=== PATIENT | male | born 1950 | race Caucasian/White ===

== ENCOUNTER 2019-10-22 08:38 | Emergency (ER) | payer MEDICARE, BC ==
[2019-10-22 08:52] VITALS: BP 155/87; PULSE 69
[2019-10-22] MEDS ORDERED: Alum Hydrox/Mag Hydrox/Simeth 30 ML, Lidocaine 2% 15 ML PO ONE ×2 (09:00)
[2019-10-22] MEDS ORDERED: Sodium Chloride 0.9% 10 ML Syringe FLUSH PRN (09:01)
[2019-10-22] MEDS ORDERED: Metoclopramide 10 MG/2 ML SDV IVPUSH ONE (09:05)
--- NOTE | 2019-10-22 09:05 | EDM.PDOC ---
ED HPI GENERAL MEDICAL PROBLEM - General Chief Complaint: Chest Pain Stated Complaint: CHEST PAIN Time Seen by Provider: 10/22/19 08:50 Source of Information: Reports: Patient History Limitations: Reports: No Limitations - History of Present Illness INITIAL COMMENTS - FREE TEXT/NARRATIVE: 69-year-old male presents to the ED complaining of diffuse left precordial discomfort for the last couple of days. He has intermittent nausea and vomiting usually in the evenings but he states this is been going on for a lengthy period of time. It sounds like he feels better first thing in the morning and by the end of the day he feels that his stomach is over full and has to vomit to get relief suggesting a gastroparesis. Of note the patient has no history of diabetes. He states he takes some kind of medication daily for heartburn relief but does not use Tums or Rolaids. Denies any true odynophagia. 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 Does not appreciate any chest pain with exertion. Used to smoke but quit many years ago. Does have some high blood pressure issues not sure about his cholesterol. His cough or sputum production. Denies fever chills. Onset: Gradual Onset Date: 10/20/19 (Planes of persistent diffuse left precordial chest discomfort for the last couple of days without radiation through to his back.) Duration: Day(s):, Constant, Other (Exertion does not make it worse.) Location: Reports: Chest (Left precordial chest.) Quality: Reports: Ache, Pressure Severity: Mild Improves with: Reports: None Worsens with: Reports: None Context: Denies: Activity, Exercise, Lifting, Sick Contact, Trauma, Other Associated Symptoms: Reports: Cough, Nausea/Vomiting (Nausea and vomiting for many years he occurs in the evening. He feels better first thing in the morning before he eats.). Denies: No Other Symptoms, Confusion (Mild cough), Chest Pain, cough w sputum, Diaphoresis, Fever/Chills, Headaches, Loss of Appetite, Malaise, Rash, Seizure, Shortness of Breath, Syncope, Weakness Left Chest Pain Score (Numeric/FACES): 4 - Related Data Allergies Allergy/AdvReac Type Severity Reaction Status Date / Time No Known Allergies Allergy Verified 10/22/19 08:52 Home Meds: Home Meds Enalapril/Hydrochlorothiazide [Enalapril-HCTZ 5-12.5 MG] 1 tab PO DAILY [History] Dicyclomine [Bentyl] 20 mg PO Q6H PRN #12 tablet 10/22/19 [Rx] Gabapentin [Neurontin] 300 mg PO DAILY 10/22/19 [History] Meloxicam 7.5 mg PO BID 10/22/19 [History] Omeprazole 20 mg PO DAILY 10/22/19 [History] Tetrahydrz/Dext 70/Peg 400/Pvp [Eye Drops] 10/22/19 [History] Tolterodine Tartrate [Detrol LA] 4 mg PO DAILY 10/22/19 [History] Vit C/E/Zn/Coppr/Lutein/Zeaxan [Preservision Areds 2 Softgel] 1 tab PO DAILY 06/02 [History] atorvaSTATin [Lipitor] 10 mg PO DAILY 10/22/19 [History] Past Medical History HEENT History: Reports: Cataract, Impaired Vision Cardiovascular History: Reports: Hypertension Gastrointestinal History: Reports: GERD Musculoskeletal History: Reports: Arthritis, Back Pain, Chronic, Neck Pain, Chronic, Other (See Below) Other Musculoskeletal History: shoulder and hip spurs, recieves injection for pain Psychiatric History: Reports: Anxiety - Past Surgical History HEENT Surgical History: Reports: Tonsillectomy Social & Family History - Family History Family Medical History: Noncontributory - Tobacco Use Smoking Status *Q: Never Smoker Second Hand Smoke Exposure: No - Caffeine Use Caffeine Use: Reports: Coffee - Recreational Drug Use Recreational Drug Use: No - Living Situation & Occupation Living situation: Reports: Single Occupation: Employed [employer] [facility] - Review of Systems Review Of Systems: See Below Constitutional: Reports: Decreased Appetite. Denies: Fever, Chills, Malaise, Weakness, Fatigue, Weight Loss HEENT: Reports: No Symptoms Respiratory: Reports: No Symptoms Cardiovascular: Reports: Chest Pain, Blood Pressure Problem. Denies: Dyspnea on Exertion, Edema (Left precordial chest discomfort for the last couple days but has had it off and on before as well.), Lightheadedness, Orthopnea, Palpitations Endocrine: Reports: No Symptoms GI/Abdominal: Reports: Abdominal Pain (Epigastric abdominal discomfort), Nausea , Vomiting (Frequent nausea and vomiting usually in the evenings after he eats his largest meal. This suggests a history of gastroparesis.) : Reports: Frequency Musculoskeletal: Reports: Back Pain, Joint Pain (Knees hips and back at times) Skin: Reports: Other (Patient comments that intermittently getting in and out of the freezer he develops blanching of his fingers particularly third second and first fingers of his left hand particularly. He also appreciates this intermittently when going out in the cold weather. This suggests a history of Raynaud's phenomenon. Stated can last up to 2 hours.) Neurological: Reports: No Symptoms Psychiatric: Reports: No Symptoms Hematologic/Lymphatic: Reports: No Symptoms Immunologic: Reports: No Symptoms ED EXAM, GENERAL - Physical Exam Exam: See Below Exam Limited By: No Limitations General Appearance: Alert, WD/WN, No Apparent Distress, Other (Temperature is 36.6 pulse is 69 is sinus respiratory is 20 BP 155/87 O2 sats are 95% on room air.) Eye Exam: Bilateral Eye: Normal Inspection, PERRL Throat/Mouth: Normal Inspection, Normal Lips, Normal Oropharynx Head: Atraumatic, Normocephalic Neck: Normal Inspection, Supple, Non-Tender, Full Range of Motion. No: Carotid Bruit, Lymphadenopathy (L), Lymphadenopathy (R) Respiratory/Chest: No Respiratory Distress, Lungs Clear, Normal Breath Sounds, No Accessory Muscle Use Cardiovascular: Normal Peripheral Pulses, Regular Rate, Rhythm, No Edema, No Gallop, No Murmur, No Rub Peripheral Pulses: 2+: Posterior Tibial (L), Posterior Tibial (R), Dorsalis Pedis (L), Dorsalis Pedis (R) GI/Abdominal: Normal Bowel Sounds, Soft, Non-Tender, No Organomegaly, No Distention, No Abnormal Bruit, No Mass, Pelvis Stable, Other (Comments he did have some diarrhea for a couple of days 3 or 4 times per day. Suggest possible gastroenteritis.) Back Exam: Normal Inspection, Full Range of Motion. No: CVA Tenderness (L), CVA Tenderness (R) Extremities: Normal Inspection, Normal Range of Motion, Non-Tender. No: Pedal Edema Neurological: Alert, Oriented, CN II-XII Intact, Normal Cognition, Normal Gait Psychiatric: Normal Affect, Normal Mood Skin Exam: Warm, Dry, Intact, Normal Color, No Rash EKG INTERPRETATION EKG Date: 10/22/19 Time: 08:45 Rhythm: NSR Rate (Beats/Min): 70 [place]: LAD-Left [place] Deviation (Left axis deviation of -20 degrees) P-Wave: Present QRS: Other (Initial early R wave transition with poor R wave progression. Decreased voltage in the precordial leads.) ST-T: Other (T wave flattening lead III nonspecific finding) QT: Normal EKG Interpretation Comments: Borderline ECG . No signs of ischemia Course - Vital Signs Last Recorded V/S: Last Vital Signs Temp 36.6 C 10/22/19 08:45 Pulse 69 10/22/19 08:45 Resp 20 10/22/19 08:45 BP 155/87 H 10/22/19 08:45 Pulse Ox 95 10/22/19 08:45 - Orders/Labs/Meds Orders: Active Orders 24 hr Category Date Time Status Peripheral IV Care [RC] . DIRECTED Care 10/22/19 09:03 Active Dicyclomine [Bentyl] Med 10/22/19 10:57 Once 20 mg PO ONETIME ONE Sodium Chloride 0.9% [Saline Flush] Med 10/22/19 09:01 Active 10 ml FLUSH ASDIRECTED PRN Peripheral IV Insertion Adult [OM.PC] Stat Oth 10/22/19 09:03 Ordered Medication Orders Sodium Chloride (Saline Flush) 10 ml FLUSH ASDIRECTED PRN PRN Reason: Keep Vein Open Last Admin: 10/22/19 09:22 Dose: 10 ml Labs: Laboratory Tests 10/22/19 10/22/19 10/22/19 Range/Units 08:54 08:54 08:54 WBC 7.98 (4.23-9.07) K/mm3 RBC 5.67 (4.63-6.08) M/mm3 Hgb 17.6 H (13.7-17.5) gm/dl Hct 52.2 H (40.1-51.0) % MCV 92.1 (79.0-92.2) fl MCH 31.0 (25.7-32.2) pg MCHC 33.7 (32.2-35.5) g/dl RDW Std Deviation 40.9 (35.1-43.9) fL Plt Count 210 (163-337) K/mm3 MPV 12.1 (9.4-12.3) fl Neut % (Auto) 66.5 (34.0-67.9) % Lymph % (Auto) 21.4 L (21.8-53.1) % [place] % (Auto) 10.3 (5.3-12.2) % Eos % (Auto) 0.8 (0.8-7.0) Baso % (Auto) 0.5 (0.1-1.2) % Neut # (Auto) 5.31 (1.78-5.38) K/mm3 Lymph # (Auto) 1.71 (1.32-3.57) K/mm3 [place] # (Auto) 0.82 (0.30-0.82) K/mm3 Eos # (Auto) 0.06 (0.04-0.54) K/mm3 Baso # (Auto) 0.04 (0.01-0.08) K/mm3 PT 10.5 (9.7-12.0) SECONDS INR 0.96 APTT 27 (22-31) SECONDS D-Dimer, Quantitative (0.19-0.50) mg/L Sodium 139 (136-145) mEq/L Potassium 4.0 (3.5-5.1) mEq/L Chloride 98 (98-107) mEq/L Carbon Dioxide 31 (21-32) mEq/L Anion Gap 14.0 (5-15) BUN 20 H (7-18) mg/dL Creatinine 1.1 (0.7-1.3) mg/dL Est Cr Clr Drug Dosing 62.18 mL/min Estimated GFR (MDRD) > 60 (>60) mL/min BUN/Creatinine Ratio 18.2 H (14-18) Glucose 121 H (80-115) mg/dL Calcium 9.2 (8.5-10.1) mg/dL Magnesium 2.1 (1.8-2.4) mg/dl Total Bilirubin 0.9 (0.2-1.0) mg/dL AST 26 (15-37) U/L ALT 51 (16-63) U/L Alkaline Phosphatase 102 (46-116) U/L CK-MB (CK-2) 1.1 (0-3.6) ng/ml Troponin I < 0.017 (0.00-0.056) ng/mL C-Reactive Protein 0.3 (<1.0) mg/dL NT-Pro-B Natriuret Pep (0-125) pg/mL Total Protein 8.5 H (6.4-8.2) g/dl Albumin 4.4 (3.4-5.0) g/dl Globulin 4.1 gm/dL Albumin/Globulin Ratio 1.1 (1-2) 10/22/19 10/22/19 Range/Units 08:54 08:54 WBC (4.23-9.07) K/mm3 RBC (4.63-6.08) M/mm3 Hgb (13.7-17.5) gm/dl Hct (40.1-51.0) % MCV (79.0-92.2) fl MCH (25.7-32.2) pg MCHC (32.2-35.5) g/dl RDW Std Deviation (35.1-43.9) fL Plt Count (163-337) K/mm3 MPV (9.4-12.3) fl Neut % (Auto) (34.0-67.9) % Lymph % (Auto) (21.8-53.1) % [place] % (Auto) (5.3-12.2) % Eos % (Auto) (0.8-7.0) Baso % (Auto) (0.1-1.2) % Neut # (Auto) (1.78-5.38) K/mm3 Lymph # (Auto) (1.32-3.57) K/mm3 [place] # (Auto) (0.30-0.82) K/mm3 Eos # (Auto) (0.04-0.54) K/mm3 Baso # (Auto) (0.01-0.08) K/mm3 PT (9.7-12.0) SECONDS INR APTT (22-31) SECONDS D-Dimer, Quantitative 0.49 (0.19-0.50) mg/L Sodium (136-145) mEq/L Potassium (3.5-5.1) mEq/L Chloride (98-107) mEq/L Carbon Dioxide (21-32) mEq/L Anion Gap (5-15) BUN (7-18) mg/dL Creatinine (0.7-1.3) mg/dL Est Cr Clr Drug Dosing mL/min Estimated GFR (MDRD) (>60) mL/min BUN/Creatinine Ratio (14-18) Glucose (80-115) mg/dL Calcium (8.5-10.1) mg/dL Magnesium (1.8-2.4) mg/dl Total Bilirubin (0.2-1.0) mg/dL AST (15-37) U/L ALT (16-63) U/L Alkaline Phosphatase (46-116) U/L CK-MB (CK-2) (0-3.6) ng/ml Troponin I (0.00-0.056) ng/mL C-Reactive Protein (<1.0) mg/dL NT-Pro-B Natriuret Pep 13 (0-125) pg/mL Total Protein (6.4-8.2) g/dl Albumin (3.4-5.0) g/dl Globulin gm/dL Albumin/Globulin Ratio (1-2) Meds: Medications Generic Name Dose Route Start Last Admin Trade Name Freq PRN Reason Stop Dose Admin Sodium Chloride 10 ml 10/22/19 09:01 10/22/19 09:22 Saline Flush FLUSH 10 ml ASDIRECTED PRN Administration Keep Vein Open Discontinued Medications Generic Name Dose Route Start Last Admin Trade Name Freq PRN Reason Stop Dose Admin Al Hydroxide/Mg Hydroxide 30 0 ml 10/22/19 09:00 10/22/19 09:20 ml/ Lidocaine HCl 15 ml PO 10/22/19 09:01 45 ml ONETIME ONE Administration Metoclopramide HCl 7.5 mg 10/22/19 09:05 10/22/19 09:22 Reglan IVPUSH 10/22/19 09:06 7.5 mg ONETIME ONE Administration - Radiology Interpretation Free Text/Narrative:: 69-year-old male presents to the ED complaining of left precordial chest discomfort for the better part of 2 days. He has had intermittent diarrhea for the last couple of days as well as nausea and vomiting in the evenings but this is been going on for many months. History suggest that he likely has a gastroparesis as he feels better first thing in the morning before he eats. He has some mild reflux disease and does take omeprazole daily but does not take Tums or Rolaids. He states he does occasionally burp and belch but does not always get any relief with this. He has no history of coronary disease. 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 Examination is completely normal. ECG shows no signs of acute ischemia. Plan saline lock. We will give him a GI cocktail to see if this relieves his discomfort. He will have 1 view chest x-ray and routine labs collected. - Re-Assessments/Exams Free Text/Narrative Re-Assessment/Exam: 10/22/19 09:41 chest x-ray done portably is within normal limits. Normal cardiac silhouette lungs are clear.Chemistry is back. Shows a sodium of 139 potassium of 4.0. With a 31. Anion gap is 14.0 BUN is 20 with a creatinine of 1.1. GFR remains greater than 60. Glucose is 121. Calcium 9.2 magnesium 2.1. Liver function is normal CK-MB is 1.1 with a troponin I of less than 0.017. C -reactive protein is 0.3 BNP is 13 total protein 8.5 with an albumin fraction of 4.4. We will give him Reglan 7.5 mg IV as well. 10/22/19 09:50 patient states he feels much better after the GI cocktail. The left precordial chest discomfort is completely gone. Waiting his hematology. 10/22/19 10:39 hematology is now back showing a normal white count of 7.98. Hemoglobin is slightly elevated at 17.6 with a hematocrit of 52.2. This is indicating some degree of hemoconcentration. Platelet count normal at 210,000. PT was 10.5 with an INR of 0.96 PTT is 27 and d-dimer is normal at 0.49. Departure - Departure Time of Disposition: 10:56 Disposition: Home, Self-Care 01 Reason for Transfer *Q: Other Condition: Fair Clinical Impression: Non-cardiac chest pain, Gastroparesis, Lactose intolerance in adult, Esophagitis Prescriptions: Dicyclomine [Bentyl] 20 mg PO Q6H PRN #12 tablet PRN Reason: Abdominal cramps/diarrhea Instructions: Lactose-Free Diet, Adult, Lactose Intolerance, Adult Referrals: America Acevedo NP [Primary Care Provider] - Forms: ED Department Discharge Additional Instructions: Evaluation in the emergency room today in regards to 2-day history of diffuse left precordial chest discomfort. History suggest intermittent nausea and vomiting usually in the evenings often before bed suggesting that your stomach is filling up as the day goes on and is not emptying appropriately. Usually food that enters the stomach is digested and turned over period of 1 to 2 hours and then is slowly emptied into the first part of the small bowel. In your case it sounds like the food is accumulating in which she would have eaten for breakfast would still be there in the evening. This is called gastroparesis meaning her stomach does not turn the food properly. Vomiting eases the discomfort and I suspect this is what is causing her chest discomfort as well IV fullness of the stomach pushing up on the food pipe which is referring the pain up anterior chest. All of the test done to the ED today are negative for any heart related illness. I would continue the omeprazole that you are on but I would suggest that you follow-up with Delma Acevedo to arrange for a strength urologist consultation and a study called gastric emptying time to prove that your stomach is not turning the food appropriately. Also the history suggest that you are likely lactose intolerant as you have found that certain foods give you cramps and diarrhea such as ice cream and milk products. I have written out a note to try and eat foods that do not contain lactose. As we also discussed you should make your larger meal probably dinner and a smaller meal at suppertime. You may use a tablet called Bentyl 20 mg tablet every 6-8 hours if needed for pressure discomfort in the stomach or chest like you are experiencing today as it should give you some relief. Sepsis Event Note - Evaluation Sepsis Screening Result: No Definite Risk - Focused Exam Vital Signs: Vital Signs Temp Pulse Resp BP Pulse Ox 10/22/19 08:45 36.6 C 69 20 155/87 H 95 Date Exam was Performed: 10/22/19 Time Exam was Performed: 10:58 - My Orders Last 24 Hours: My Active Orders 10/22/19 09:01 Sodium Chloride 0.9% [Saline Flush] 10 ml FLUSH ASDIRECTED PRN 10/22/19 09:03 Peripheral IV Care [RC] . DIRECTED Peripheral IV Insertion Adult [OM.PC] Stat 10/22/19 10:57 Dicyclomine [Bentyl] 20 mg PO ONETIME ONE - Assessment/Plan Last 24 Hours: My Active Orders 10/22/19 09:01 Sodium Chloride 0.9% [Saline Flush] 10 ml FLUSH ASDIRECTED PRN 10/22/19 09:03 Peripheral IV Care [RC] . DIRECTED Peripheral IV Insertion Adult [OM.PC] Stat 10/22/19 10:57 Dicyclomine [Bentyl] 20 mg PO ONETIME ONE
--- NOTE | 2019-10-22 09:44 | CR ---
Chest: Portable view of the chest was obtained. Comparison: No previous chest x-ray. Heart size and mediastinum are normal. Lungs are clear. Bony structures are grossly intact. Impression: 1. Nothing acute is identified on portable chest x-ray. Diagnostic code #1 This report was dictated in [place] Standard Time
[2019-10-22] MEDS ORDERED: Dicyclomine 10 MG Cap PO ONE (10:57)
== END 2019-10-22 11:23 | disposition home or self-care (01) ==
LOC: JD.ED 08:38
DX: R07.89 Other chest pain (principal); K20.9 Esophagitis, unspecified; K31.84 Gastroparesis; T50.905A Adverse effect of unspecified drugs, medicaments and biological substances, initial encounter; K21.9 Gastro-esophageal reflux disease without esophagitis; M19.90 Unspecified osteoarthritis, unspecified site; I10 Essential (primary) hypertension; Z79.899 Other long term (current) drug therapy
CPT/HCPCS: 36415; 71045; 80053; 82553; 83735; 83880; 84484; 85025; 85379; 85610; 85730; 86140; 96374; 99285; A9270; J2765; 93010

== ENCOUNTER 2024-06-25 03:40 | Emergency (ER) | payer MEDICARE, BC ==
[2024-06-25 04:33] LABS: BASOPHILS ABSOLUTE AUTO 0.1 K/mm3 (0.0-0.2); BASOPHILS PERCENT AUTO 0.3 % (0.0-1.0); HEMATOCRIT 47.9 % (42.0-52.0); HEMOGLOBIN 16.9 gm/dl (14.0-18.0); IMMATURE GRAN ABSOLUTE AUTO 0.13 K/mm3 (0.00-0.05); IMMATURE GRAN PERCENT AUTO 0.7 % (0.0-0.4); LYMPHOCYTES PERCENT AUTO 5.1 % (24.0-44.0); MEAN CORPUSCULAR HEMOGLOBIN 31.5 pg (28.0-32.0); MEAN CORPUSCULAR HGB CONC 35.3 g/dl (32.0-36.0); MEAN CORPUSCULAR VOLUME 89.4 fl (83.0-99.0); MEAN PLATELET VOLUME 12.4 fl (9.4-12.4); MONOCYTES ABSOLUTE AUTO 0.9 K/mm3 (0.0-0.8); MONOCYTES PERCENT AUTO 4.5 % (0.0-8.0); NEUTROPHILS ABSOLUTE AUTO 16.9 K/mm3 (1.8-7.7); NEUTROPHILS PERCENT AUTO 89.4 % (41.0-71.0); PLATELET COUNT,PLT 226 K/mm3 (150-400); RED BLOOD CELL COUNT 5.36 M/mm3 (4.52-5.90); WHITE BLOOD CELL COUNT,WBC 18.85 K/mm3 (3.9-11.3)
[2024-06-25 04:52] LABS: A/G RATIO 1.1 (1-2); ALBUMIN 4.3 g/dl (3.4-5.0); BILIRUBIN TOTAL 1.1 mg/dL (0.2-1.0); BUN/CREATININE RATIO 12.7 (14-18); CALCIUM 9.8 mg/dL (8.5-10.1); CREATININE 1.5 mg/dL (0.7-1.3); EST CRCL DRUG DOSING (CG) 39.58 mL/min; MAGNESIUM 1.8 mg/dL (1.8-2.4); PROTEIN TOTAL,TP 8.4 g/dl (6.4-8.2)
[2024-06-25 05:09] LABS: LACTIC ACID 2.2 mmol/L (0.4-2.0)
[2024-06-25] MEDS: Sodium Chloride 0.9% 10 ML Syringe FLUSH PRN (05:39)
[2024-06-25] MEDS: Sodium Chloride 0.9% 1,000 ML IV ONE (05:39)
[2024-06-25 05:51] LABS: APPEARANCE,URINE CLEAR (Clear); BILIRUBIN,URINE NEGATIVE (Negative); COLOR,URINE YELLOW (Yellow); GLUCOSE,URINE NEGATIVE (Negative); KETONES,URINE NEGATIVE (Negative); LEUKOCYTE ESTERASE,URINE NEGATIVE (Negative); NITRITE,URINE NEGATIVE (Negative); OCCULT BLOOD,URINE TRACE-LYSED (Negative); PROTEIN,URINE NEGATIVE (Negative); UROBILINOGEN,URINE 0.2 (0.2-1.0)
[2024-06-25 06:10] LABS: BACTERIA,URINE FEW /hpf (FEW); EPITHELIAL CELLS,URINE 0-5 /hpf (0-5); MUCUS,URINE FEW /hpf (FEW); WBC,URINE 0-5 /hpf (0-5)
[2024-06-25] MEDS: Acetaminophen 325 MG Tab PO ONE (08:04)
[2024-06-25] MEDS ORDERED: cefTRIAXone 1 GM in Sodium Chloride 0.9% 100 ML IV ONE (09:46)
[2024-06-25] MEDS: cefTRIAXone 1 GM in Sodium Chloride 0.9% 100 ML IV ONE (09:56)
[2024-06-25 10:33] VITALS: BP 130/78; PULSE 85
== END 2024-06-25 10:30 | disposition home or self-care (01) ==
LOC: JD.ED 03:40
DX: R74.02 Elevation of levels of lactic acid dehydrogenase [LDH] (principal); R33.9 Retention of urine, unspecified; I10 Essential (primary) hypertension; K21.9 Gastro-esophageal reflux disease without esophagitis; Z79.899 Other long term (current) drug therapy
CPT/HCPCS: 36415; 51702; 80053; 81001; 83605; 83735; 85025; 96361; 96365; 99284; A9270; J0696; J3490; J7030

== ENCOUNTER 2024-06-27 09:32 | Emergency (ER) | payer MEDICARE, BC ==
[2024-06-27 09:52] VITALS: BP 172/73; PULSE 66
== END 2024-06-27 11:06 | disposition home or self-care (01) ==
LOC: JD.ED 09:32
DX: Z46.6 Encounter for fitting and adjustment of urinary device (principal); I10 Essential (primary) hypertension; K21.9 Gastro-esophageal reflux disease without esophagitis; Z79.899 Other long term (current) drug therapy; Z86.16 Personal history of COVID-19
CPT/HCPCS: 99283

== ENCOUNTER 2024-06-30 21:44 | Emergency (ER) | payer MEDICARE, BC ==
[2024-06-30 21:56] VITALS: BP 157/89; PULSE 76
[2024-06-30 22:38] LABS: APPEARANCE,URINE CLEAR (Clear); BILIRUBIN,URINE NEGATIVE (Negative); COLOR,URINE LIGHT YELLOW (Yellow); GLUCOSE,URINE NEGATIVE (Negative); KETONES,URINE NEGATIVE (Negative); LEUKOCYTE ESTERASE,URINE NEGATIVE (Negative); NITRITE,URINE NEGATIVE (Negative); OCCULT BLOOD,URINE NEGATIVE (Negative); PROTEIN,URINE NEGATIVE (Negative); UROBILINOGEN,URINE 0.2 (0.2-1.0)
== END 2024-06-30 23:19 | disposition home or self-care (01) ==
LOC: JD.ED 21:44
DX: R33.9 Retention of urine, unspecified (principal); I10 Essential (primary) hypertension; K21.9 Gastro-esophageal reflux disease without esophagitis; Z86.16 Personal history of COVID-19; Z79.899 Other long term (current) drug therapy; Z88.8 Allergy status to other drugs, medicaments and biological substances
CPT/HCPCS: 51798; 81003; 99284-25

== ENCOUNTER 2024-10-02 09:51 | Emergency (ER) | payer MEDICARE, BC ==
[2024-10-02] MEDS ORDERED: Sodium Chloride 0.9% 10 ML Syringe FLUSH PRN (10:32)
[2024-10-02 10:55] LABS: BASOPHILS ABSOLUTE AUTO 0.1 K/mm3 (0.0-0.2); BASOPHILS PERCENT AUTO 0.9 % (0.0-1.0); EOSINOPHILS ABSOLUTE AUTO 0.1 K/mm3 (0.0-0.4); EOSINOPHILS PERCENT AUTO 1.4 % (0.0-6.0); HEMATOCRIT 45.2 % (42.0-52.0); IMMATURE GRAN ABSOLUTE AUTO 0.12 K/mm3 (0.00-0.05); IMMATURE GRAN PERCENT AUTO 1.5 % (0.0-0.4); LYMPHOCYTES ABSOLUTE AUTO 1.3 K/mm3 (1.0-4.8); LYMPHOCYTES PERCENT AUTO 16.9 % (24.0-44.0); MEAN CORPUSCULAR HEMOGLOBIN 31.4 pg (28.0-32.0); MEAN CORPUSCULAR HGB CONC 33.2 g/dl (32.0-36.0); MEAN PLATELET VOLUME 11.4 fl (9.4-12.4); MONOCYTES ABSOLUTE AUTO 0.7 K/mm3 (0.0-0.8); MONOCYTES PERCENT AUTO 9.1 % (0.0-8.0); NEUTROPHILS ABSOLUTE AUTO 5.6 K/mm3 (1.8-7.7); NEUTROPHILS PERCENT AUTO 70.2 % (41.0-71.0); PLATELET COUNT,PLT 208 K/mm3 (150-400); RED BLOOD CELL COUNT 4.78 M/mm3 (4.52-5.90); WHITE BLOOD CELL COUNT,WBC 7.94 K/mm3 (3.9-11.3)
[2024-10-02 10:59] LABS: MEAN CORPUSCULAR VOLUME 94.6 fl (83.0-99.0)
[2024-10-02] MEDS: Iopamidol 612 MG/ML 100 ML Bottle IVPUSH ONE (11:03)
[2024-10-02] MEDS: Sodium Chloride 0.9% 10 ML Syringe FLUSH ONE (11:03)
[2024-10-02 11:19] LABS: APPEARANCE,URINE CLOUDY (Clear); BILIRUBIN,URINE NEGATIVE (Negative); COLOR,URINE YELLOW (Yellow); GLUCOSE,URINE NEGATIVE (Negative); KETONES,URINE NEGATIVE (Negative); LEUKOCYTE ESTERASE,URINE 2+ (Negative); NITRITE,URINE NEGATIVE (Negative); OCCULT BLOOD,URINE 3+ (Negative); PROTEIN,URINE 1+ (Negative); UROBILINOGEN,URINE 0.2 (0.2-1.0)
[2024-10-02 11:20] LABS: A/G RATIO 0.7 (1-2); ALBUMIN 3.4 g/dl (3.4-5.0); ANION GAP 11.6 (5-15); BILIRUBIN TOTAL 0.6 mg/dL (0.2-1.0); BUN/CREATININE RATIO 13.6 (14-18); CALCIUM 9.2 mg/dL (8.5-10.1); CREATININE 1.1 mg/dL (0.7-1.3); EST CRCL DRUG DOSING (CG) 53.97 mL/min; MAGNESIUM 2.1 mg/dL (1.8-2.4); POTASSIUM,K 4.6 mEq/L (3.5-5.1)
[2024-10-02 11:36] LABS: BACTERIA,URINE MODERATE /hpf (FEW); MUCUS,URINE MODERATE /hpf (FEW); RBC,URINE >100 /hpf (0-5); SQUAMOUS EPITHELIAL CELLS,UR 0-5 /hpf (0-5); WBC,URINE 50-75 /hpf (0-5)
[2024-10-02] MEDS: cefTRIAXone 1 GM Vial IVPUSH ONE (11:59)
[2024-10-02 13:23] VITALS: BP 143/77; PULSE 73
== END 2024-10-02 12:30 | disposition home or self-care (01) ==
LOC: JD.ED 09:51
DX: N39.0 Urinary tract infection, site not specified (principal); I10 Essential (primary) hypertension; Z88.8 Allergy status to other drugs, medicaments and biological substances; Z79.899 Other long term (current) drug therapy; Z86.16 Personal history of COVID-19
CPT/HCPCS: 36415; 74177; 80053; 81001; 82272; 83735; 85025; 96374; 99285; J0696; Q9967; 99284

== ENCOUNTER 2024-10-24 19:53 | Emergency (ER) | payer MEDICARE, BC ==
[2024-10-24 21:15] LABS: APPEARANCE,URINE CLOUDY (Clear); BILIRUBIN,URINE NEGATIVE (Negative); COLOR,URINE YELLOW (Yellow); GLUCOSE,URINE NEGATIVE (Negative); KETONES,URINE NEGATIVE (Negative); LEUKOCYTE ESTERASE,URINE 1+ (Negative); NITRITE,URINE NEGATIVE (Negative); OCCULT BLOOD,URINE 2+ (Negative); PROTEIN,URINE 3+ (Negative)
[2024-10-24 21:40] LABS: BACTERIA,URINE MANY /hpf (FEW); MUCUS,URINE FEW /hpf (FEW); SQUAMOUS EPITHELIAL CELLS,UR 0-5 /hpf (0-5); WBC,URINE 50-75 /hpf (0-5); YEAST,URINE FEW (NOT SEEN)
[2024-10-24 21:45] LABS: BASOPHILS ABSOLUTE AUTO 0.1 K/mm3 (0.0-0.2); BASOPHILS PERCENT AUTO 0.8 % (0.0-1.0); EOSINOPHILS ABSOLUTE AUTO 0.2 K/mm3 (0.0-0.4); EOSINOPHILS PERCENT AUTO 2.2 % (0.0-6.0); HEMATOCRIT 40.6 % (42.0-52.0); HEMOGLOBIN 13.9 gm/dl (14.0-18.0); IMMATURE GRAN ABSOLUTE AUTO 0.07 K/mm3 (0.00-0.05); IMMATURE GRAN PERCENT AUTO 0.8 % (0.0-0.4); LYMPHOCYTES ABSOLUTE AUTO 1.6 K/mm3 (1.0-4.8); MEAN CORPUSCULAR HEMOGLOBIN 32.2 pg (28.0-32.0); MEAN CORPUSCULAR HGB CONC 34.2 g/dl (32.0-36.0); MEAN PLATELET VOLUME 11.4 fl (9.4-12.4); MONOCYTES ABSOLUTE AUTO 0.9 K/mm3 (0.0-0.8); MONOCYTES PERCENT AUTO 9.8 % (0.0-8.0); NEUTROPHILS ABSOLUTE AUTO 6.2 K/mm3 (1.8-7.7); NEUTROPHILS PERCENT AUTO 68.4 % (41.0-71.0); PLATELET COUNT,PLT 157 K/mm3 (150-400); RED BLOOD CELL COUNT 4.32 M/mm3 (4.52-5.90); WHITE BLOOD CELL COUNT,WBC 9.04 K/mm3 (3.9-11.3)
[2024-10-24 22:16] LABS: A/G RATIO 0.8 (1-2); ANION GAP 7.7 (5-15); BILIRUBIN TOTAL 0.5 mg/dL (0.2-1.0); BUN/CREATININE RATIO 14.2 (14-18); C-REACTIVE PROTEIN 1.05 mg/dL (<0.30); CALCIUM 8.2 mg/dL (8.5-10.1); CREATININE 1.2 mg/dL (0.7-1.3); EST CRCL DRUG DOSING (CG) 49.47 mL/min; POTASSIUM,K 3.7 mEq/L (3.5-5.1); PROTEIN TOTAL,TP 6.6 g/dl (6.4-8.2)
[2024-10-24] MEDS: Fluconazole 100 MG Tab PO ONE (23:08)
[2024-10-24 23:31] VITALS: BP 144/74; PULSE 74
== END 2024-10-24 23:19 | disposition home or self-care (01) ==
LOC: JD.ED 19:53
DX: K59.00 Constipation, unspecified (principal); K62.5 Hemorrhage of anus and rectum; N39.0 Urinary tract infection, site not specified; I10 Essential (primary) hypertension; K21.9 Gastro-esophageal reflux disease without esophagitis; Z88.0 Allergy status to penicillin; Z88.8 Allergy status to other drugs, medicaments and biological substances; Z79.899 Other long term (current) drug therapy; Z86.16 Personal history of COVID-19
CPT/HCPCS: 36415; 74018; 80053; 81001; 85025; 86140; 87086; 93005; 99284; A9270; 93010; 99283

== ENCOUNTER 2024-10-29 07:07 | Day surgery (SDC) | payer MEDICARE, BC ==
[~2024-10-29 07:07] MED LIST: Lactated Ringers 1,000 ML IV SCH; Sodium Chloride 0.9% 10 ML Syringe FLUSH PRN; Sodium Chloride 0.9% 10 ML Syringe FLUSH SCH
[2024-10-29] MEDS: Lactated Ringers 1,000 ML IV SCH (07:30)
[2024-10-29] MEDS ORDERED: Propofol 200 MG/20 ML SDV ONE ×2 (07:49→07:52)
[2024-10-29 09:38] VITALS: BP 126/74; PULSE 70
== END 2024-10-29 09:25 | disposition home or self-care (01) ==
LOC: JD.SDS 07:07
PROVIDERS: ATTEND Surgery
DX: Z12.11 Encounter for screening for malignant neoplasm of colon (principal); D12.2 Benign neoplasm of ascending colon; D12.5 Benign neoplasm of sigmoid colon; K64.1 Second degree hemorrhoids; Z86.0101 Personal history of adenomatous and serrated colon polyps; I10 Essential (primary) hypertension; K21.9 Gastro-esophageal reflux disease without esophagitis; Z79.899 Other long term (current) drug therapy; Z88.0 Allergy status to penicillin
CPT/HCPCS: 45380; J2704; J7120; 00811